=== PATIENT | male | born 1990 | race Caucasian/White ===

== ENCOUNTER 2018-10-03 00:49 | Emergency (ER) | payer SELFPAY ==
[~2018-10-03] VITALS: Ht 167.6 cm; Wt 95.3 kg
[2018-10-03 01:02] VITALS: BP 161/90; Ht 167.6 cm; Wt 95.3 kg
[2018-10-03 01:33] LABS: microscopic required? NO
[2018-10-03 01:40] LABS: UA SPECIFIC GRAVITY <=1.005 (1.005-1.035); urine erythrocyte NEGATIVE (NEGATIVE)
== END 2018-10-03 03:29 | disposition home or self-care (01) ==
LOC: ED 00:49
PROVIDERS: Emergency Medicine
DX: F10.129 Alcohol abuse with intoxication, unspecified (principal)